=== PATIENT | male | born 1955 | race Asian ===

== ENCOUNTER 2017-01-30 07:03 | Emergency (ER) | payer SELFPAY ==
[2017-01-30 07:50] LABS: BASOPHIL % 0.3 % (0-2); PLATELET COUNT 226 x10^3mcL (130-400); RED CELL DISTRIBUTION WIDTH 12.2 % (11.5-14.5)
[2017-01-30 08:03] LABS: CHOLESTEROL/HDL RATIO 3.9
[2017-01-30 08:09] LABS: T3 TOTAL 0.77 ng/mL
[2017-01-30 08:12] LABS: FREE T4 1.09 ng/dL (0.76-1.46); FREE THYROXINE INDEX 2.6 ug/dL (1.4-4.5); T4(THYROXINE) 6.6 ug/dL (4.7-13.3)
[2017-01-30 08:30] LABS: CARBON DIOXIDE 25.6 mmol/L (21-32); CHLORIDE SERUM 103 mmol/L (98-107); GFR1 > 60 mL/min; GLUCOSE SERUM 121 mg/dL (74-106); POTASSIUM SERUM 4.3 mmol/L (3.5-5.1); SODIUM SERUM 138 mmol/L (136-145)
[2017-01-30 08:35] LABS: ALBUMIN 3.7 g/dL (3.4-5.0); ALKALINE PHOSPHATASE 54 U/L (46-116); ALT/SGPT 45 U/L (16-63); AST/SGOT 21 U/L (15-37); BILIRUBIN TOTAL 0.6 mg/dL (0.20-1.00); TOTAL PROTEIN, SERUM 6.9 g/dL (6.4-8.2)
[2017-01-30 08:42] LABS: microscopic required? NO
[2017-01-30 09:19] LABS: UA SPECIFIC GRAVITY 1.015 (1.005-1.035); urine erythrocyte NEGATIVE (NEGATIVE)
[2017-01-30] MEDS ORDERED: NITROGLYCERIN0.4 MG (10:20)
[2017-01-30 11:36] VITALS: BP 112/78
== END 2017-01-30 11:36 | disposition left against medical advice (07) ==
LOC: ED 07:03 → DU 10:10 → ED 11:36
PROVIDERS: Specialist
DX: I25.10 Atherosclerotic heart disease of native coronary artery without angina pectoris (principal); I25.2 Old myocardial infarction
CPT/HCPCS: 83880; 84439; Q0092